=== PATIENT | female | born 2000 | race African-American/Black ===

== ENCOUNTER 2022-05-15 12:44 | Emergency (ER) | payer MEDICAID ==
[~2022-05-15] VITALS: Ht 170.2 cm; Wt 61.3 kg
[2022-05-15] MEDS ORDERED: BUPIVACAINE HCL 0.5% 50 ML VIAL PERC ONE (14:30)
[2022-05-15] MEDS ORDERED: POVIDONE-IODINE 10% 15 ML SOLUTION UD TP ONE (14:30)
[2022-05-15] MEDS ORDERED: LIDOCAINE 1% 10 ML VIAL PERC ONE (14:30)
[2022-05-15 15:23] VITALS: BP 118/61
== END 2022-05-15 15:40 | disposition home or self-care (01) ==
LOC: EMS 12:44
DX: S91.201A Unspecified open wound of right great toe with damage to nail, initial encounter (principal); F10.20 Alcohol dependence, uncomplicated; X58.XXXA Exposure to other specified factors, initial encounter; Y93.89 Activity, other specified; Y92.89 Other specified places as the place of occurrence of the external cause; Y99.8 Other external cause status
CPT/HCPCS: 99284; 11730; J3490 ×2